=== PATIENT | male | born 1975 | race Two or more races ===

== ENCOUNTER 2024-01-03 21:05 | Inpatient (IN) | payer BC, OTHER ==
[~2024-01-03] VITALS: Ht 172.7 cm; Wt 72.4 kg
[2024-01-03 21:58] LABS: Basophils # (auto) 0 10 ^3/uL (0-0.2); Basophils % (auto) 0.1 % (0.0-2.0); Eosinophils # (auto) 0 10 ^3/uL (0-0.8); Eosinophils % (auto) 0.1 % (0.0-7.0); Hematocrit 40.2 % (41.0-53.0); Hemoglobin 13.7 g/dL (13.5-17.5); Lymphocytes # (auto) 1.4 10 ^3/uL (0.4-5.4); Mean Corpuscular Hemoglobin 29.2 pg (28.0-32.0); Monocytes # (auto) 0.9 10 ^3/uL (0-1.3); Monocytes % (auto) 5.7 % (0.0-12.0); Neutrophils # (auto) 13.7 10 ^3/uL (1.6-8.6); Neutrophils % (auto) 85.1 % (37.0-80.0); Platelet Count (auto) 298 10^3/uL (140-450); Red Blood Cells 4.67 10^6/uL (4.5-5.90); Red Cell Distribution Width 13.4 % (11.8-14.3); White Blood Cell 16.1 10^3/uL (4.4-10.8)
[2024-01-03 22:15] LABS: Alanine Aminotransferase 25 U/L (7-40); Albumin 4.2 g/dL (3.2-4.8); Alkaline Phosphatase 74 U/L (46-116); Anion Gap 9 (5-15); Aspartate Aminotransferase 24 U/L (13-40); BUN/Creatinine Ratio 14.3 (10.0-20.0); Bilirubin, Total 0.8 mg/dL (0.2-1.0); Blood Urea Nitrogen 13 mg/dL (9-23); Calcium 9.3 mg/dL (8.7-10.4); Carbon Dioxide 24 mmol/L (20-30); Chloride 105 mmol/L (98-107); Glucose 150 mg/dL (74-106); Potassium 3.8 mmol/L (3.5-5.1); Sodium 138 mmol/L (136-145)
[2024-01-03] MEDS: fentaNYL CITRATE 100 MCG/2 ML VL IV ONE (22:17)
[2024-01-03 22:20] LABS: INR 1.08 (0.9-1.15); Partial Thromboplastin Time 22.3 SEC (24.5-34.5); Prothrombin Time 11.4 sec (9.3-11.8)
[2024-01-03] MEDS: ONDANSETRON HCL 4 MG/2 ML VIAL IV ONE (22:20)
[2024-01-03] MEDS: MORPHINE SULFATE 4 MG/ML SYR/VIAL IV ONE (22:21)
[2024-01-03] MEDS: KETOROLAC TROMETH 30 MG/ML 1ML VIAL IV ONE (23:25)
[2024-01-04] MEDS ORDERED: MORPHINE SULFATE INJ 2 MG/ml SYRG IV PRN (01:15)
[2024-01-04] MEDS ORDERED: NITROGLYCERIN 0.4 MG SL TAB SL PRN (01:15)
[2024-01-04] MEDS ORDERED: DEXTROSE (50%) 50ML SYRG IV PRN (01:30)
[2024-01-04] MEDS: D5W/SOD CHLO 0.9% 1,000 ML IV ONE (02:30)
[2024-01-04 04:52] LABS: Basophils # (auto) 0 10 ^3/uL (0-0.2); Basophils % (auto) 0.1 % (0.0-2.0); Eosinophils # (auto) 0 10 ^3/uL (0-0.8); Hematocrit 35.7 % (41.0-53.0); Hemoglobin 12.3 g/dL (13.5-17.5); Lymphocytes # (auto) 0.8 10 ^3/uL (0.4-5.4); Lymphocytes % (auto) 9.7 % (10.0-50.0); Mean Corpuscular Hemoglobin 29.6 pg (28.0-32.0); Mean Corpuscular Hgb Conc. 34.4 g/dL (32.0-36.0); Monocytes # (auto) 0.6 10 ^3/uL (0-1.3); Monocytes % (auto) 7.8 % (0.0-12.0); Neutrophils # (auto) 6.4 10 ^3/uL (1.6-8.6); Neutrophils % (auto) 82.4 % (37.0-80.0); Platelet Count (auto) 250 10^3/uL (140-450); Red Blood Cells 4.15 10^6/uL (4.5-5.90); Red Cell Distribution Width 13.4 % (11.8-14.3); White Blood Cell 7.7 10^3/uL (4.4-10.8)
[2024-01-04 05:02] LABS: Chloride 103 mmol/L (98-107); Potassium 3.9 mmol/L (3.5-5.1); Sodium 137 mmol/L (136-145)
[2024-01-04 05:03] LABS: Anion Gap 8 (5-15); Carbon Dioxide 26 mmol/L (20-30)
[2024-01-04 05:09] LABS: BUN/Creatinine Ratio 17.7 (10.0-20.0); Blood Urea Nitrogen 17 mg/dL (9-23); Glucose 162 mg/dL (74-106)
[2024-01-04] MEDS: InsuLIN REG 1unit/0.01ml Soln (100units/ml) SC SCH (06:00)
[2024-01-04] MEDS: ACCU-CHEK COMFORT CURVE STRIP VI SCH (06:10)
[2024-01-04] MEDS: MORPHINE SULFATE INJ 2 MG/ml SYRG IV PRN (07:37)
[2024-01-04] MEDS: ONDANSETRON HCL 4 MG/2 ML VIAL IV PRN (07:43)
[2024-01-04 07:59] VITALS: PULSE 87; RESP 20
[2024-01-04 11:00] VITALS: BP 123/71; PULSE 81; RESP 20; TEMP 99; O2SAT 99
[2024-01-04 11:58] LABS: Urine Bacteria None Seen /hpf (None Seen)
[2024-01-04 12:22] LABS: Urine Blood 3+ /uL (Negative); Urine Clarity Clear (Clear); Urine Color Yellow (Yellow); Urine Mucus FEW (None Seen); Urine Protein, UAD TRACE (Negative); Urine Specific Gravity 1.031 (1.001-1.035); Urine Urobilinogen Normal (Negative); Urine WBC 2 /hpf (0 - 3)
[2024-01-04] MEDS: ENOXAPARIN SOD 40 MG/0.4 ML SYRINGE SC SCH (12:32)
[2024-01-04 12:43] VITALS: PULSE 78; RESP 20; O2SAT 98
[2024-01-04 13:00] VITALS: BP 116/70; PULSE 81; RESP 20; TEMP 99; O2SAT 99
[2024-01-04] MEDS: HYDROcodone-ACET 5/325MG TAB PO PRN (15:45)
[2024-01-04 16:57] VITALS: BP 121/74; PULSE 79; RESP 20; TEMP 98.6; O2SAT 96
[2024-01-04 21:00] VITALS: BP 115/67; PULSE 94; RESP 18; TEMP 98.1; O2SAT 97
[2024-01-05] VITALS (7 sets, daily range): BP systolic 92–116; BP diastolic 54–68; PULSE 77–90; RESP 12–19; TEMP 97.6–98.4; O2SAT 96–100
[2024-01-05 03:58] LABS: COVID19 ANTIGEN SOFIA FIA NEGATIVE (NEGATIVE)
[2024-01-05 06:07] LABS: Basophils # (auto) 0 10 ^3/uL (0-0.2); Basophils % (auto) 0.3 % (0.0-2.0); Eosinophils # (auto) 0 10 ^3/uL (0-0.8); Eosinophils % (auto) 0.5 % (0.0-7.0); Hematocrit 29.8 % (41.0-53.0); Hemoglobin 10.6 g/dL (13.5-17.5); Lymphocytes # (auto) 1.2 10 ^3/uL (0.4-5.4); Lymphocytes % (auto) 20.5 % (10.0-50.0); Mean Corpuscular Hemoglobin 30.3 pg (28.0-32.0); Mean Corpuscular Hgb Conc. 35.5 g/dL (32.0-36.0); Mean Corpuscular Volume 85.2 fL (80.0-100.0); Monocytes # (auto) 0.5 10 ^3/uL (0-1.3); Monocytes % (auto) 8.7 % (0.0-12.0); Neutrophils # (auto) 4.2 10 ^3/uL (1.6-8.6); Platelet Count (auto) 207 10^3/uL (140-450)
[2024-01-05 06:21] LABS: Chloride 104 mmol/L (98-107); Potassium 3.9 mmol/L (3.5-5.1); Sodium 136 mmol/L (136-145)
[2024-01-05 06:22] LABS: Anion Gap 7 (5-15); Calcium 8.5 mg/dL (8.7-10.4); Carbon Dioxide 25 mmol/L (20-30)
[2024-01-05 06:27] LABS: BUN/Creatinine Ratio 16.3 (10.0-20.0); Blood Urea Nitrogen 13 mg/dL (9-23); Glucose 109 mg/dL (74-106)
[2024-01-05] MEDS: ACETAMINOPHEN IV 1000 MG/100ML (10MG/ML) IV ONE (06:45)
[2024-01-05] MEDS: CELECOXIB 100 MG CAP PO ONE (06:45)
[2024-01-05] MEDS ORDERED: fentaNYL CITRATE 100 MCG/2 ML VL ONE (06:56)
[2024-01-05] MEDS ORDERED: KETAMINE 50mg/ML 1ml syringe ONE (06:56)
[2024-01-05] MEDS ORDERED: DexAMETHasone SOD PHOS 10MG/1ML VIAL INJ ONE (06:57)
[2024-01-05] MEDS ORDERED: GLYCOPYRROLATE 0.2 MG/ML 1ML VIAL ONE (06:57)
[2024-01-05] MEDS ORDERED: ONDANSETRON HCL 4 MG/2 ML VIAL ONE (06:57)
[2024-01-05] MEDS ORDERED: LIDOCAINE 1% INJ PF 5ML AMP ONE (06:57)
[2024-01-05] MEDS ORDERED: KETOROLAC TROMETH 30 MG/ML 1ML VIAL ONE (06:57)
[2024-01-05] MEDS ORDERED: PROPOFOL 10 MG/ML 20 ML IV ONE ×2 (06:57→08:29)
[2024-01-05] MEDS: GABAPENTIN 400 MG CAP PO ONE (07:25)
[2024-01-05] MEDS ORDERED: PHENYLEPHRINE HCL 10 MG/ML VL ONE (07:45)
[2024-01-05] MEDS ORDERED: SODIUM CHLORIDE LOCK 10 ML ONE (07:45)
[2024-01-05] MEDS ORDERED: FLUMAZENIL 0.1 MG/ML INJ 10ML MDV IV PRN (09:15)
[2024-01-05] MEDS ORDERED: ePHEDrine SULFATE 50 MG/ML AMP IV PRN (09:15)
[2024-01-05] MEDS ORDERED: ONDANSETRON HCL 4 MG/2 ML VIAL IV PRN (09:15)
[2024-01-05] MEDS ORDERED: HYDROmorphone HCL 2 MG/ML VL/or syr IV PRN (09:15)
[2024-01-05] MEDS ORDERED: fentaNYL CITRATE 100 MCG/2 ML VL IV PRN (09:15)
[2024-01-05] MEDS ORDERED: NALOXONE HCL 0.4 MG/ML VIAL IV PRN (09:15)
[2024-01-05] MEDS ORDERED: hydrALAZINE HCL 20 MG/ML VL IV PRN (09:15)
[2024-01-05] MEDS: DOCUSATE SOD 100 MG CAP PO PRN (12:48)
[2024-01-05] MEDS: D5W/SOD CHL 0.45%/KCL 20MEQ 1,000 ML IV SCH (12:48)
[2024-01-05] MEDS: ceFAZolin 1GM/50ML 50 ML IV SCH (15:02)
[2024-01-06] VITALS (11 sets, daily range): BP systolic 99–120; BP diastolic 56–69; PULSE 72–101; RESP 16–20; TEMP 97.8–99; O2SAT 97–100
[2024-01-06 07:12] LABS: Basophils # (auto) 0 10 ^3/uL (0-0.2); Eosinophils # (auto) 0 10 ^3/uL (0-0.8); Hemoglobin 7.7 g/dL (13.5-17.5); Lymphocytes # (auto) 0.8 10 ^3/uL (0.4-5.4); Monocytes # (auto) 0.6 10 ^3/uL (0-1.3); Red Blood Cells 2.56 10^6/uL (4.5-5.90)
[2024-01-06 07:14] LABS: Mean Corpuscular Hemoglobin 29.9 pg (28.0-32.0); Mean Corpuscular Hgb Conc. 34.9 g/dL (32.0-36.0); Mean Corpuscular Volume 85.6 fL (80.0-100.0); Monocytes % (auto) 8.9 % (0.0-12.0); Neutrophils # (auto) 5.3 10 ^3/uL (1.6-8.6); Neutrophils % (auto) 79.1 % (37.0-80.0); Platelet Count (auto) 183 10^3/uL (140-450); Red Cell Distribution Width 12.9 % (11.8-14.3); White Blood Cell 6.6 10^3/uL (4.4-10.8)
[2024-01-06 07:28] LABS: Chloride 111 mmol/L (98-107); Potassium 4.3 mmol/L (3.5-5.1); Sodium 140 mmol/L (136-145)
[2024-01-06 07:29] LABS: Anion Gap 2 (5-15); Calcium 8.3 mg/dL (8.7-10.4); Carbon Dioxide 27 mmol/L (20-30)
[2024-01-06 07:34] LABS: BUN/Creatinine Ratio 18.2 (10.0-20.0); Blood Urea Nitrogen 14 mg/dL (9-23); Glucose 124 mg/dL (74-106)
[2024-01-06] MEDS: SODIUM CHLORIDE 0.9% 1,000 ML IV ONE (10:00)
[2024-01-06 10:13] LABS: Base Excess -0.2 mmol/L (-2.0-3.0)
[2024-01-06] MEDS: HYDROmorphone HCL 2 MG/ML VL/or syr IV PRN (10:36)
[2024-01-06] MEDS: SODIUM CHLORIDE 0.9% 1,000 ML IV SCH (11:00)
[2024-01-06 11:02] LABS: Basophils # (auto) 0 10 ^3/uL (0-0.2); Basophils % (auto) 0.1 % (0.0-2.0); Eosinophils # (auto) 0 10 ^3/uL (0-0.8); Hematocrit 22.2 % (41.0-53.0); Hemoglobin 7.7 g/dL (13.5-17.5); Monocytes # (auto) 0.7 10 ^3/uL (0-1.3); White Blood Cell 7.8 10^3/uL (4.4-10.8)
[2024-01-06 11:03] LABS: Lymphocytes # (auto) 1.3 10 ^3/uL (0.4-5.4); Lymphocytes % (auto) 16.1 % (10.0-50.0); Mean Corpuscular Hemoglobin 29.6 pg (28.0-32.0); Mean Corpuscular Hgb Conc. 34.8 g/dL (32.0-36.0); Mean Corpuscular Volume 85.1 fL (80.0-100.0); Neutrophils # (auto) 5.9 10 ^3/uL (1.6-8.6); Neutrophils % (auto) 74.8 % (37.0-80.0); Nucleated Red Blood Cells % 0.1 %; Platelet Count (auto) 190 10^3/uL (140-450); Red Cell Distribution Width 12.9 % (11.8-14.3)
[2024-01-07] VITALS (8 sets, daily range): BP systolic 117–140; BP diastolic 30–75; PULSE 77–94; RESP 14–20; TEMP 98–98.8; O2SAT 96–100
[2024-01-07 07:09] LABS: Basophils # (auto) 0 10 ^3/uL (0-0.2); Basophils % (auto) 0.3 % (0.0-2.0); Eosinophils # (auto) 0 10 ^3/uL (0-0.8); Eosinophils % (auto) 0.4 % (0.0-7.0); Hematocrit 26.2 % (41.0-53.0); Hemoglobin 9.1 g/dL (13.5-17.5); Lymphocytes # (auto) 1.8 10 ^3/uL (0.4-5.4); Lymphocytes % (auto) 29.7 % (10.0-50.0); Mean Corpuscular Hgb Conc. 34.8 g/dL (32.0-36.0); Mean Corpuscular Volume 86.1 fL (80.0-100.0); Monocytes # (auto) 0.5 10 ^3/uL (0-1.3); Monocytes % (auto) 8.4 % (0.0-12.0); Neutrophils # (auto) 3.8 10 ^3/uL (1.6-8.6); Neutrophils % (auto) 61.2 % (37.0-80.0); Nucleated Red Blood Cells % 0.1 %; Platelet Count (auto) 204 10^3/uL (140-450); Red Blood Cells 3.04 10^6/uL (4.5-5.90); Red Cell Distribution Width 13.4 % (11.8-14.3); White Blood Cell 6.1 10^3/uL (4.4-10.8)
[2024-01-07 07:18] LABS: Anion Gap 6 (5-15); Carbon Dioxide 26 mmol/L (20-30); Chloride 108 mmol/L (98-107); Sodium 140 mmol/L (136-145)
[2024-01-07 07:19] LABS: Calcium 8.2 mg/dL (8.7-10.4)
[2024-01-07 07:24] LABS: BUN/Creatinine Ratio 16.3 (10.0-20.0); Blood Urea Nitrogen 13 mg/dL (9-23); Glucose 99 mg/dL (74-106)
[2024-01-08] VITALS (9 sets, daily range): BP systolic 108–120; BP diastolic 50–80; PULSE 77–101; RESP 14–20; TEMP 36.6; O2SAT 95–99
[2024-01-08 05:03] LABS: Basophils # (auto) 0 10 ^3/uL (0-0.2); Basophils % (auto) 0.2 % (0.0-2.0); Eosinophils # (auto) 0 10 ^3/uL (0-0.8); Eosinophils % (auto) 0.7 % (0.0-7.0); Hematocrit 26.8 % (41.0-53.0); Hemoglobin 9.2 g/dL (13.5-17.5); Lymphocytes # (auto) 1.3 10 ^3/uL (0.4-5.4); Lymphocytes % (auto) 22.5 % (10.0-50.0); Mean Corpuscular Hemoglobin 29.4 pg (28.0-32.0); Mean Corpuscular Hgb Conc. 34.3 g/dL (32.0-36.0); Mean Corpuscular Volume 85.9 fL (80.0-100.0); Monocytes # (auto) 0.5 10 ^3/uL (0-1.3); Monocytes % (auto) 8.8 % (0.0-12.0); Neutrophils # (auto) 3.9 10 ^3/uL (1.6-8.6); Neutrophils % (auto) 67.8 % (37.0-80.0); Platelet Count (auto) 231 10^3/uL (140-450); Red Blood Cells 3.12 10^6/uL (4.5-5.90); Red Cell Distribution Width 13.4 % (11.8-14.3); White Blood Cell 5.8 10^3/uL (4.4-10.8)
[2024-01-08 05:21] LABS: Chloride 106 mmol/L (98-107); Potassium 4.1 mmol/L (3.5-5.1); Sodium 136 mmol/L (136-145)
[2024-01-08 05:22] LABS: Anion Gap 4 (5-15); Calcium 8.7 mg/dL (8.7-10.4); Carbon Dioxide 26 mmol/L (20-30)
[2024-01-08 05:27] LABS: BUN/Creatinine Ratio 21.4 (10.0-20.0); Blood Urea Nitrogen 15 mg/dL (9-23); Glucose 106 mg/dL (74-106)
[2024-01-08] MEDS: ACETAMINOPHEN 325 MG TAB PO PRN (17:04)
[2024-01-08] MEDS: oxyCODONE HCL 5MG TAB PO PRN (23:15)
[2024-01-09] VITALS (7 sets, daily range): BP systolic 100–123; BP diastolic 58–70; PULSE 89–110; RESP 17–20; TEMP 98–99.4; O2SAT 95–98
[2024-01-09] MEDS: EPINEPHrine HCL 1 MG/1 ML AMP ONE (08:00)
[2024-01-09] MEDS: BUPIVACAINE 0.25% INJ 50ML VIAL ONE (08:01)
[2024-01-09] MEDS: ceFAZolin 2 GM/D5W50ml 50 ML IV ONE (08:01)
[2024-01-09] MEDS: DexAMETHasone SOD PHOS 4 MG/1ML SDV INJ ONE (08:01)
[2024-01-10] VITALS (8 sets, daily range): BP systolic 100–119; BP diastolic 59–73; PULSE 78–98; RESP 16–22; TEMP 97.5–99.2; O2SAT 94–98
[2024-01-11] VITALS (8 sets, daily range): BP systolic 102–113; BP diastolic 58–65; PULSE 79–101; RESP 17–21; TEMP 97.6–99.6; O2SAT 96–98
[2024-01-12] VITALS (7 sets, daily range): BP systolic 107–122; BP diastolic 67–72; PULSE 63–105; RESP 16–18; TEMP 97.5–98.9; O2SAT 95–100
[2024-01-12] MEDS ORDERED: HYDR-4902 PO (14:44)
[2024-01-13 01:00] VITALS: BP 114/68; PULSE 83; RESP 16; O2SAT 99
[2024-01-13 05:00] VITALS: BP 106/58; PULSE 89; RESP 18; TEMP 98.6; O2SAT 100
[2024-01-13 10:42] VITALS: BP 109/66; PULSE 89; RESP 16; TEMP 98.6; O2SAT 99
[2024-01-13 14:36] LABS: Basophils # (auto) 0 10 ^3/uL (0-0.2); Basophils % (auto) 0.4 % (0.0-2.0); Eosinophils # (auto) 0.1 10 ^3/uL (0-0.8); Monocytes # (auto) 0.4 10 ^3/uL (0-1.3); Nucleated Red Blood Cells % 0.1 %
[2024-01-13 14:38] LABS: Eosinophils % (auto) 0.7 % (0.0-7.0); Hematocrit 29.2 % (41.0-53.0); Hemoglobin 9.9 g/dL (13.5-17.5); Lymphocytes # (auto) 1.2 10 ^3/uL (0.4-5.4); Lymphocytes % (auto) 15.9 % (10.0-50.0); Mean Corpuscular Hemoglobin 28.9 pg (28.0-32.0); Mean Corpuscular Hgb Conc. 33.9 g/dL (32.0-36.0); Mean Corpuscular Volume 85.3 fL (80.0-100.0); Monocytes % (auto) 5.3 % (0.0-12.0); Neutrophils # (auto) 5.7 10 ^3/uL (1.6-8.6); Neutrophils % (auto) 77.7 % (37.0-80.0); Platelet Count (auto) 462 10^3/uL (140-450); Red Blood Cells 3.42 10^6/uL (4.5-5.90); Red Cell Distribution Width 13.4 % (11.8-14.3); White Blood Cell 7.3 10^3/uL (4.4-10.8)
[2024-01-13 14:58] LABS: Chloride 101 mmol/L (98-107); Potassium 3.9 mmol/L (3.5-5.1); Sodium 134 mmol/L (136-145)
[2024-01-13 14:59] LABS: Anion Gap 7 (5-15); Calcium 9.5 mg/dL (8.7-10.4); Carbon Dioxide 26 mmol/L (20-30)
[2024-01-13 15:00] VITALS: BP 112/68; PULSE 88; RESP 17; TEMP 98.5; O2SAT 99
[2024-01-13 15:04] LABS: BUN/Creatinine Ratio 24.7 (10.0-20.0); Blood Urea Nitrogen 20 mg/dL (9-23); Glucose 177 mg/dL (74-106)
== END 2024-01-13 15:45 | disposition home health service (06) | DRG 482 ==
LOC: EDBD 21:05 → ER 21:05 → OVERFLOW 01-04 01:12 → EAST 01-04 10:29
PROVIDERS: ADMIT Nurse Practitioner Family; ATTEND Internal Medicine
PROC: 0QS704Z Reposition Left Upper Femur with Internal Fixation Device, Open Approach (ICD-10-PCS; principal; 2024-01-05 07:27)
PROC: 30233N1 Transfusion of Nonautologous Red Blood Cells into Peripheral Vein, Percutaneous Approach (ICD-10-PCS; 2024-01-06)
DX: S72.142A Displaced intertrochanteric fracture of left femur, initial encounter for closed fracture (principal); D72.829 Elevated white blood cell count, unspecified; D64.9 Anemia, unspecified; I95.9 Hypotension, unspecified; Z79.899 Other long term (current) drug therapy; W18.39XA Other fall on same level, initial encounter; Y93.89 Activity, other specified; Y92.89 Other specified places as the place of occurrence of the external cause; Y99.8 Other external cause status
CPT/HCPCS: 36415; 36600; 71045; 76000; 80048; 80053; 81001; 82805; 82962; 83036; 84484; 85025; 85610; 85730; 86850; 86900; 86901; 86920; 87426; 93005; 93306; 97110; 97116; 97163; 97530; G0378; J0131; J0171; J1100; J1815; J1885; J2405; J2704; J3490